=== PATIENT | female | born 1960 | race American Indian/Alaskan Native ===

== ENCOUNTER 2017-02-20 07:45 | Day surgery (SDC) | payer MEDICARE ==
[2017-02-17 11:56] VITALS: BMI 26.2
[~2017-02-20 07:45] MED LIST: Bupivacaine HCl 0.5% PF (10 ml) Inj ONE; Lidocaine 1% Inj (20ml) ONE; Sodium Chloride 0.9% 20 ML IV ONE; ceFAZolin IV 1 gm in Dextrose 0 GM/0 ML BAG IVPB ONE; ceFAZolin IV 2 gm in Dextrose 1 GM/50 ML BAG IVPB ONE
[2017-02-20] MEDS ORDERED: (Novolin R) Insulin Human Regular 100 units/ml vial ONE (08:05)
[2017-02-20] MEDS ORDERED: Midazolam 2 MG/2 ML VIAL ONE (08:29)
[2017-02-20] MEDS ORDERED: Propofol 10 mg/ml Inj (20 ML) ONE (08:29)
[2017-02-20] MEDS ORDERED: Phenylephrine 10 mg/ml Inj ONE (09:15)
--- NOTE | 2017-02-21 22:05 | PCM.SURG1 ---
Surgeon's Initial Post Op Note - Surgeon's Notes Surgeon: Dr. Sarkar [employer] Test Technician: Dr. Maya Type of Anesthesia: IV Sedation, Local Anesthesia Administered By: YANNA Pre-Operative Diagnosis: Left foot wound dehiscence secondary to uncontrolled blood sugar Operative Findings: 3-4 Prolene Post-Operative Diagnosis: same Operation Performed: Delayed secondary closure of Left foot wound Specimen/Specimens Removed: none Estimated Blood Loss: EBL {In ML}: 5 Blood Products Given: N/A Drains Used: No Drains Post-Op Condition: Good Date of Surgery/Procedure: 02/20/17 Time of Surgery/Procedure: 08:20
--- NOTE | 2017-02-24 07:13 | OP ---
PROCEDURE DATE: 02/20/2017 SURGEON: Dr. Sarkar. LINOTYPE MECHANIC: Dr. Kaylee Maya. DONOR CENTER TECHNICIAN: YANNA. ANESTHESIA: General mask and local. PREOPERATIVE DIAGNOSIS: Left foot wound dehiscence secondary to uncontrolled blood sugar. POSTOPERATIVE DIAGNOSIS: Left foot wound dehiscence secondary to uncontrolled blood sugar. PROCEDURE PERFORMED: Left foot delayed secondary closure of wound dehiscence. INDICATIONS: The patient is a 56-year-old female with the above diagnosis. The patient had a left f oot talonavicular fusion a couple months ago, and the incision site has wound dehiscence due to uncon trolled blood sugar. The patient signed the consent after careful explanation of risks, benefits, co mplication, and alternatives for surgical procedure. No guarantees were given nor implied. N.p.o. s tatus was confirmed prior to taking patient to the OR. PREPARATION: The patient was brought to the operating room table and placed on the operating room ta ble in a supine position. The well-padded pneumatic ankle tourniquet was placed to the patient's lef t ankle in a supramalleolar position. After induction of general anesthesia, the patient received a total of 12 mL of 1:1 mixture of 0.5% Marcaine plain and 1% lidocaine plain in local block fashion to the left foot. Once local anesthesia was achieved, the left foot was then prepped and draped in usu al sterile manner. Esmarch was utilized to exsanguinate the patient's left foot. Pneumatic ankle to urniquet was then inflated to 250 mmHg and procedure began. DESCRIPTION OF PROCEDURE: Attention was directed to the dorsal aspect of the left foot longitudinal open wound over the talonavicular joint, measuring approximately 4 cm in length. Utilizing #15 blade and a forceps, macerated wound margins were cut out with thickness of approximately 2 mm. Wound bas e was gently debrided with a #15 blade to promote bleeding and granulation of tissue. The wound site was irrigated with copious amounts of mixture of normal saline and antibiotic. Then, the skin was r eapproximated with 4-0 Prolene. Then, the left foot was dressed with Xeroform, 4 x 4, Kerlix, and Ac e bandage. The attending was present during the entire case. POSTOPERATIVE CONDITION: The patient tolerated the anesthesia and procedure well and was escorted to the recovery room with vital signs stable and neurovascular status intact to the left foot. The pat ient will follow up with Dr. Sarkar. KAYLEE MAYA DPM Dylon Sarkar DPM cc: [id number] TT: 02/23/2017 22:35:54 tn
== END 2017-02-20 13:00 | disposition home or self-care (01) ==
LOC: C.OPSURG 07:45
PROVIDERS: ATTEND Podiatrist
DX: T81.30XA Disruption of wound, unspecified, initial encounter (principal); E11.65 Type 2 diabetes mellitus with hyperglycemia; I10 Essential (primary) hypertension; Y83.8 Other surgical procedures as the cause of abnormal reaction of the patient, or of later complication, without mention of misadventure at the time of the procedure; Z79.4 Long term (current) use of insulin
CPT/HCPCS: 13160; 36415; 83036; J0690; J2001; J2250; J2370; J2405; J2704; J3010

== ENCOUNTER 2018-04-21 07:55 | Emergency (ER) | payer MEDICARE ==
[2018-04-21 07:55] VITALS: BMI 26.2
[2018-04-21] MEDS: Albuterol-Ipratrop 3 mg / 0.5 (3 ml) UD IH SCH ×2 (09:11→09:12)
--- NOTE | 2018-04-21 09:31 | C.PDOC ---
History Of Present Illness 57 y/o female with history of Asthma presents to ED with c/o cough, congestion and sob for 1.5 months. Patient states she has seen PMD, given medication with no improvement prompting visit to ED today. Patient denies fever, chills, nausea , vomiting, chest pain, dizziness, headache or any other complaints at this time. Time Seen by Provider: 04/21/18 08:02 Chief Complaint (Nursing): Shortness Of Breath History Per: Patient History/Exam Limitations: no limitations Onset/Duration Of Symptoms: Days Current Symptoms Are (Timing): Still Present Initiating Event: Upper Respiratory Illness Past Medical History Reviewed: Historical Data, Nursing Documentation, Vital Signs Vital Signs: Last Vital Signs Temp 98 F 04/21/18 10:33 Pulse 84 04/21/18 10:33 Resp 18 04/21/18 10:33 BP 120/53 L 04/21/18 10:33 Pulse Ox 100 04/21/18 10:33 - Medical History PMH: Arthritis (KNEES), Asthma, HTN, Hypercholesterolemia Surgical History: Endoscopy - [facility] Procedures CARPAL TUNNEL RELEASE (08/10/14) COLONOSCOPY (03/23/15) DEBRIDEMENT OF NAIL, NAIL BED OR NAIL FOLD (04/15/13) DESTRUC-FOOT JT LES NEC (10/28/13) OTHER LOCAL DESTRUC SKIN (04/15/13) REPAIR OF HAMMER TOE (10/28/13) Family History: States: No Known Family Hx - Social History Hx Alcohol Use: Yes Hx Substance Use: No - Immunization History Hx Tetanus Toxoid Vaccination: No Hx Influenza Vaccination: Yes Hx Pneumococcal Vaccination: Yes Review Of Systems Constitutional: Negative for: Fever, Chills ENT: Positive for: Nose Congestion Respiratory: Positive for: Cough, Shortness of Breath Gastrointestinal: Negative for: Nausea, Vomiting Skin: Negative for: Rash Neurological: Negative for: Headache Physical Exam - Physical Exam Appears: Non-toxic, No Acute Distress Skin: Warm, Dry, No Rash Head: Atraumatic, Normacephalic Eye(s): bilateral: Normal Inspection Oral Mucosa: Moist Neck: Supple Chest: Symmetrical Cardiovascular: Rhythm Regular Respiratory: No Rales, Rhonchi (bibasilar), No Wheezing Gastrointestinal/Abdominal: Soft, No Tenderness, No Guarding, No Rebound Extremity: No Pedal Edema, Capillary Refill (<2 seconds) Neurological/Psych: Oriented x3, Normal Speech, Normal Cognition ED Course And Treatment - Laboratory Results Result Diagrams: 04/21/18 09:21 04/21/18 09:21 O2 Sat by Pulse Oximetry: 96 (RA) Pulse Ox Interpretation: Normal - Radiology CXR: Interpreted by Me CXR Interpretation: Yes: No Acute Disease. No: Infiltrates, Cardiomegaly Medical Decision Making Medical Decision Making: Patient coughing after nebulized treatment. Responded to Tesilon Pearls. Much improved. Will d/c with PMD f/u Disposition Counseled Patient/Family Regarding: Studies Performed, Diagnosis - Disposition Disposition: HOME/ ROUTINE Disposition Time: 10:46 Condition: IMPROVED Prescriptions: Benzonatate [Tessalon Perles] 100 mg PO TID #30 sgl Instructions: Asthma, Adult (DC) Forms: [facility] (Kyrgyz), General Discharge Instructions - POA Present On Arrival: None - Clinical Impression Clinical Impression: Dyspnea, Asthma, Seasonal allergies, Cough - Scribe Statement The provider has reviewed the documentation as recorded by the [facility]ie[facility] [place] All medical record entries made by the Karieibger were at my direction and personally dictated by me. I have reviewed the chart and agree that the record accurately reflects my personal performance of the history, physical exam, medical decision making, and the department course for this patient. I have also personally directed, reviewed, and agree with the discharge instructions and disposition.
[2018-04-21 09:35] LABS: BASO # 0.1 K/uL (0.0-0.2); BASO % 0.6 % (0.0-2.0); EOS % 9.5 % (0.0-4.0); HEMOGLOBIN 11.3 g/dL (11.0-16.0); LYMPH # 3.2 K/uL (1.0-4.3); LYMPH % 29.1 % (20.0-40.0); MEAN CELL VOLUME 80.6 fL (81.0-99.0); MEAN CORPUSCULAR HEMOGLOBIN 26.8 pg (27.0-31.0); MEAN CORPUSCULAR HGB CONC 33.2 g/dL (33.0-37.0); MEAN PLATELET VOLUME 11.5 fL (7.2-11.7); MONO # 0.9 K/uL (0.0-0.8); MONO % 8.7 % (0.0-10.0); NEUT # 5.7 K/uL (1.8-7.0); NEUT % 52.1 % (50.0-75.0); RBC 4.2 Mil/uL (3.80-5.20); RED CELL DISTRIBUTION WIDTH 14.9 % (11.5-14.5); WHITE BLOOD COUNT 10.9 K/uL (4.8-10.8)
[2018-04-21 09:36] LABS: ALT/SGPT 23 U/L (9-52); AST/SGOT 21 U/L (14-36); BLOOD UREA NITROGEN 24 mg/dL (7-17); GFR NON-AFRICAN AMERICAN 57
[2018-04-21 09:48] LABS: B-TYPE NATRIURETIC PEPTIDE 44.1 pg/mL (0-900)
[2018-04-21 10:34] VITALS: BP 120/53; PULSE 84; RESP 18; TEMP 98
[2018-04-21 10:48] VITALS: O2SAT 96
--- NOTE | 2018-04-21 12:20 | RAD ---
Date of service: 04/21/2018 HISTORY: SOB COMPARISON: 05/29/2015. TECHNIQUE: Chest PA and lateral FINDINGS: LUNGS: No active pulmonary disease. PLEURA: No significant pleural effusion identified. No pneumothorax apparent. CARDIOVASCULAR: No radiographic findings to suggest acute or significant cardiovascular disease. OSSEOUS STRUCTURES: No significant abnormalities. VISUALIZED UPPER ABDOMEN: Normal. OTHER FINDINGS: None. IMPRESSION: No active disease. No significant interval change compared to the prior examination(s).
--- NOTE | 2018-04-22 17:19 | CARD ---
APPROVED REPORT Date of service: 04/21/2018 EKG Measurement Heart [id number] <Conclusion> Normal sinus rhythm Normal ECG
== END 2018-04-21 11:09 | disposition home or self-care (01) ==
LOC: C.ER 07:55
DX: J45.909 Unspecified asthma, uncomplicated (principal); R06.00 Dyspnea, unspecified; R05 Cough; I10 Essential (primary) hypertension; E78.00 Pure hypercholesterolemia, unspecified